=== PATIENT | male | born 1955 | race Caucasian/White ===

== ENCOUNTER 2016-08-10 13:10 | Emergency (ER) | payer OTHER ==
[~2016-08-10] VITALS: Ht 193 cm; Wt 100.0 kg
[~2016-08-10 13:10] MED LIST: HYDR12.5 PO; VIC5 PO; WARF10TA4 PO
[2016-08-10 13:16] VITALS: BP 139/86; PULSE 56; RESP 20; O2SAT 95
[2016-08-10 14:08] LABS: INR 1.49 ratio
--- NOTE | 2016-08-10 15:58 | ED.REPORT ---
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 Was taping off interiors using masking tape repeatedly. Tape went over right index finger. Today he was eating lunch in his truck and when he returned to work, he noticed his finger was white from PCP joint to tip. Whitness has resolved and he has normal sensation now. However, the palmar aspect of the finger looked bruised when his skin is white. The area in question now shows darker red coloring, likely the beginning of a bruise. Concerned he has a clot. Has had a hx of prior clot. loudre is primary care Nursing Notes Stated Complaint: NO CIRCULATION IN RT FINGER Chief Complaint: General Complaint Nursing Notes Reviewed: Yes Allergies: Coded Allergies: No Known Allergies (Verified , 08/10/16) Scheduled Hydrochlorothiazide-Expunged, Do Not Renew! (Hydrochlorothiazide-Expunged, Do Not Renew!) 12.5 Mg Capsule 12.5 MG PO DAILY Hydrocod/APAP-Expunged, Do Not Renew! (Vicodin-Expunged Drug, Do Not Renew) 1 Tab Tab 1 TAB PO [id number] Warfarin Sodium (Warfarin Sodium) 10 Mg Tablet 8 MG PO DAILY General Time Seen by MD: 15:57 Chief Complaint Finger injury right 2 Hx Obtained From: Patient Past Medical History Past Medical History clotting disorder Smoking History Current Every Day Smoker Social History Alcohol Use: Denies alcohol use Drug Use: Denies drug use Other Social History: Ambulatory Status Independent Review of Systems Basic Review of Systems Eyes: Vision NL, No discharge ENT: Hearing NL, No pain, No nasal congestion, No pharyngeal pain Respiratory: No shortness of breath, No cough, No wheeze Cardiovascular: No chest pain, No dyspnea on exertion, No orthopnea, No parox noct dyspnea, No palpitations GI: No abdominal pain, No anorexia, No nausea, No vomiting : No dysuria, No frequency Hematologic: No bleeding, No bruising Endocrine: No cold intolerance, No heat intolerance, No weight gain, No weight loss Allergy / Immune: No allergy Psychiatric: Normal thought content Physical Exam Initial Vital Signs Vital Signs (First) Date Time Temp Pulse Resp B/P Pulse Ox O2 Delivery O2 Flow Rate FiO2 08/10/16 13:16 36.5 56 20 139/86 95 Room Air Initial VS: Reviewed, Vital signs normal General/Constitutional: Well-developed, Well-nourished Head / Eyes: Atraumatic, Normocephalic, PERRL ENT: Mucous membranes moist, Conjunctiva normal, No scleral icterus Neck: Supple, Non-tender, Full range of motion Respiratory: Breath sounds normal, Clear to auscultation, No respiratory distress Cardiovascular: Regular rate & rhythm, Heart sounds normal, Intact distal pulses Abdomen / GI: Soft, Non-tender, No guarding, No rebound, No distention Back: No CVA tenderness Lymphatic: No lymphadenopathy Lower Extremities: Vascular intact, Neuro intact, No swelling, No tenderness Skin: Warm, Dry, No cyanosis Neurologic: Alert, Oriented, Nonfocal Psychiatric: Mood/affect normal, Behavior normal, Normal thought content General/Constitutional: Awake, Alert, No acute distress, Well appearing, Well developed, Well hydrated Neck: Atraumatic, Supple, No meningismus, Full range of motion Respiratory / Chest: Atraumatic, Breath sounds NL, Breath sounds = bilat, No respiratory distress Cardiovascular: Heart rate NL, Regular rhythm, Heart sounds NL right hand index finger on palmar aspect shows skin to be darker red as in beginning bruise, no increase in warmth, no swelling, cap refill less than 2 sec. Rash / Lesion Notes: nail on right index finger has brown streak in nail, no other fingers have this Interpretation & Diagnostics Interpretation & Diagnostics: d-dimer is negative Lab Results Interpretation Result Diagram: 08/10/16 1702 08/10/16 1702 Test 08/10/16 13:33 08/10/16 17:02 Prothrombin Time 16.1sec (8.1-12.5) Prothromb Time International Ratio 1.49ratio White Blood Count 7.4th/mm3 (3.8-10.1) Red Blood Count 5.13mil/mm3 (4.40-5.80) Hemoglobin 16.1g/dL (13.8-17.2) Hematocrit 48.6% (41.0-50.0) Mean Corpuscular Volume 94.7fL (81-100) Mean Corpuscular Hemoglobin 31.4pg (27.0-35.0) Mean Corpuscular Hemoglobin Concent 33.1% (32.0-37.0) Red Cell Distribution Width 14.3% (12.3-15.4) Platelet Count 268bil/L (150-400) Neutrophils (%) (Auto) 34.9% (40-74) Lymphocytes (%) (Auto) 56.7% (14-46) Monocytes (%) (Auto) 5.7% (4-12) Eosinophils (%) (Auto) 2.0% (0-5) Basophils (%) (Auto) 0.3% (0-3) D-Dimer < 0.5mg/L (<0.50) Sodium Level 142mEq/L (134-144) Potassium Level 4.5mEq/L (3.5-5.2) Chloride Level 105mEq/L (97-108) Carbon Dioxide Level 24mmol/L (18-29) Blood Urea Nitrogen 13mg/dL (8-27) Creatinine 0.89mg/dL (0.76-1.27) Estimat Glomerular Filtration Rate 92mL/min (>59) Glucose Level 98mg/dL (60-99) Calcium Level 9.4mg/dL (8.5-10.1) Total Bilirubin 0.5mg/dL (0.0-1.2) Aspartate Amino Transf (AST/SGOT) 23U/L (0-50) Alanine Aminotransferase (ALT/SGPT) 19U/L (0-44) Alkaline Phosphatase 78U/L (25-160) Total Protein 7.8g/dL (6.4-8.4) Albumin 4.7g/dL (3.4-5.0) Hold Sepulveda Top Tube Received (Received) Re-Eval/Medical Decision Med Decision/Clinical Course discussed with patient unlikely to be a clot, more likely to be arterial spasm. Discussed with DR. Bergeron, requesting labs and d-dimer. Completed and normal Differential Diagnosis: Positive: Arterial occlus/ischemia Discharge & Departure Impression: Primary Impression: Arterial spasm Additional Impression: Fingernail abnormalities Disposition: Home Additional Instructions: The description sounds like an arterial spasm. The blood flow has returned to your finger. You still need to have the nail looked at. Please discuss with Dr. Alma Delia saini a different medication would be better for you. Please call later with lab results. I am sorry your was upset. Please call Dr. Bergeron's office for follow up. Referrals: Marquis Bergeron MD (PCP) EDSupervising Provider for APC: Roberto Carlos Caputo MD copies to: Marquis Bergeron MD, Sue ARNP Aug 10, 2016 15:58
[2016-08-10 17:09] LABS: BASOPHILS % (AUTO) 0.3 % (0-3); MONOCYTES % (AUTO) 5.7 % (4-12); Mean Corpuscular Hemoglobin 31.4 pg (27.0-35.0); Mean Corpuscular Volume 94.7 fL (81-100); NEUTROPHILS % (AUTO) 34.9 % (40-74); Platelet Count 268 bil/L (150-400)
== END 2016-08-10 17:04 | disposition home or self-care (01) ==
LOC: SED 13:10
DX: I73.9 Peripheral vascular disease, unspecified (principal); L60.8 Other nail disorders; F17.200 Nicotine dependence, unspecified, uncomplicated; Z86.2 Personal history of diseases of the blood and blood-forming organs and certain disorders involving the immune mechanism; Z79.01 Long term (current) use of anticoagulants